=== PATIENT | female | born 1960 | race Caucasian/White ===

== ENCOUNTER 2023-11-06 12:56 | Emergency (ER) | payer OTHER, SELFPAY ==
[2023-11-06 13:01] VITALS: BP 147/94
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
[2023-11-06] MEDS: MOTRIN 600 MG PO (14:56)
[2023-11-06 15:07] VITALS: BP 147/74
== END 2023-11-06 15:08 | disposition home or self-care (01) ==
LOC: EMR 12:56
PROVIDERS: EMERGENCY PHYSICIAN Emergency Medicine; FAMILY PHYSICIAN Internal Medicine
DX: S49.82XA Other specified injuries of left shoulder and upper arm, initial encounter (principal); V53.5XXA Driver of pick-up truck or van injured in collision with car, pick-up truck or van in traffic accident, initial encounter; R03.0 Elevated blood-pressure reading, without diagnosis of hypertension
CPT/HCPCS: 99283; 73030